=== PATIENT | male | born 1940 | race Caucasian/White ===

== ENCOUNTER → 2017-03-25 | Outpatient (CLI) | payer MEDICARE, OTHER ==
[~2017-03-25] MED LIST: ALLOPURINOL300 MG PO; AMOXICILLIN 50500 MG PO; AMOXICILLIN875 MG PO; ASPIR-LOW81 MG PO; ASPIRIN E.C. 8181 MG PO; BENICAR HCT 12.1 TA1 PO; CARDURA8 MG PO; CIPRO 500MG TA500 MG PO; CLARINEX 5MG5 MG PO; COREG12.5 MG PO; COREG6.25 MG PO; DOXAZOCIN; FLONASE NASAL S16 GM NS; FLUVOXAMINE MALEATE; LIPITOR 10MG10 MG PO; LUVOX100 MG PO; MAREPA1200 MG PO; NASONEX SPRAY; NASONEX SPRAY17 GM NS; NORCO 325 MG-51 TAB PO; ZYLOPRIM 300MG300 MG PO
== END ==
LOC: SUN.DIA 10:20
DX: E11.9 Type 2 diabetes mellitus without complications (principal); Z71.3 Dietary counseling and surveillance; Z87.891 Personal history of nicotine dependence
CPT/HCPCS: G0109

== ENCOUNTER → 2017-03-31 | Outpatient (CLI) | payer MEDICARE, OTHER | LOC: SUN.DIA 09:54 | DX: E11.9 Type 2 diabetes mellitus without complications (principal); E78.5 Hyperlipidemia, unspecified; I10 Essential (primary) hypertension; E66.9 Obesity, unspecified; Z68.41 Body mass index [BMI] 40.0-44.9, adult; Z71.3 Dietary counseling and surveillance; Z87.891 Personal history of nicotine dependence | CPT/HCPCS: G0108 ==

== ENCOUNTER → 2017-04-01 | Outpatient (CLI) | payer MEDICARE, OTHER | LOC: SUN.DIA 15:40 | DX: E11.9 Type 2 diabetes mellitus without complications (principal); E78.5 Hyperlipidemia, unspecified; I10 Essential (primary) hypertension; E66.9 Obesity, unspecified; Z71.3 Dietary counseling and surveillance; Z87.891 Personal history of nicotine dependence | CPT/HCPCS: G0109 ==

== ENCOUNTER → 2017-04-08 | Outpatient (CLI) | payer MEDICARE, OTHER | LOC: SUN.DIA 09:20 | DX: E11.9 Type 2 diabetes mellitus without complications (principal); E78.5 Hyperlipidemia, unspecified; I10 Essential (primary) hypertension; E66.9 Obesity, unspecified; Z71.3 Dietary counseling and surveillance; Z87.891 Personal history of nicotine dependence | CPT/HCPCS: G0109 ==

== ENCOUNTER → 2017-04-14 | Outpatient (CLI) | payer MEDICARE, OTHER | LOC: SUN.DIA 14:26 | DX: E11.9 Type 2 diabetes mellitus without complications (principal); E78.5 Hyperlipidemia, unspecified; I10 Essential (primary) hypertension; E66.9 Obesity, unspecified; Z68.41 Body mass index [BMI] 40.0-44.9, adult; Z71.3 Dietary counseling and surveillance; Z87.891 Personal history of nicotine dependence ==

== ENCOUNTER → 2017-04-15 | Outpatient (CLI) | payer MEDICARE, OTHER | LOC: SUN.DIA 08:38 | DX: E11.9 Type 2 diabetes mellitus without complications (principal); E78.5 Hyperlipidemia, unspecified; I10 Essential (primary) hypertension; E66.9 Obesity, unspecified; Z71.3 Dietary counseling and surveillance; Z87.891 Personal history of nicotine dependence | CPT/HCPCS: G0109 ==

== ENCOUNTER → 2017-07-15 | Outpatient (CLI) | payer MEDICARE, OTHER ==
[~2017-07-15] MED LIST changes: +CENTANY AT2% TP; +CEPHALEXIN500 M1 PO; +COREG 25MG25 MG/TAB PO; +GLUCOPHAGE1000 MG PO; +LEVOXYL0.05 MG PO
== END ==
LOC: SUN.DIA 14:36
DX: E11.9 Type 2 diabetes mellitus without complications (principal); E78.5 Hyperlipidemia, unspecified; I10 Essential (primary) hypertension; E66.9 Obesity, unspecified; Z68.41 Body mass index [BMI] 40.0-44.9, adult; Z71.3 Dietary counseling and surveillance; Z87.891 Personal history of nicotine dependence

== ENCOUNTER 2017-07-22 09:22 | Day surgery (SDC) | payer MEDICARE, OTHER ==
[2008-05-11 06:16] VITALS: BP 154/89
[2017-07-22] VITALS (9 sets, daily range): BP systolic 85–188; BP diastolic 45–97; PULSE 61–82; TEMP 98.1–98.5
[~2017-07-22] VITALS: Ht 170.4 cm; Wt 122.4 kg
[~2017-07-22 09:22] MED LIST changes: -CENTANY AT2% TP; -CEPHALEXIN500 M1 PO; -COREG 25MG25 MG/TAB PO; -GLUCOPHAGE1000 MG PO; -LEVOXYL0.05 MG PO
[2017-07-22 09:59] LABS: HEMATOCRIT 36.2 % (42.0-52.0); HEMOGLOBIN 12.1 g/dl (13.5-18.0); MEAN CELL VOLUME 91 fl (80.0-100.0); MEAN CORPUSCULAR HEMOGLOBIN 30 pg (27.0-31.0); MEAN CORPUSCULAR HGB CONC 33 g/dl (33.0-37.0); MEAN PLATELET VOLUME 9.8 fl (7.4-10.4); PLATELET COUNT 190 K/mm3 (130-400); RED BLOOD COUNT 3.99 M/mm3 (4.20-5.60); REDCELL DISTRIBUTION WIDTH-CV 13.9 % (11.5-14.5)
[2017-07-22 10:02] LABS: INR 1.2 (0.8-3.0); PROTHROMBIN TIME 13.7 SECONDS (9.7-12.8)
[2017-07-22 10:07] LABS: CALCIUM 9.7 mg/dL (8.4-10.2); CREATININE, serum 1.21 mg/dL (0.66-1.25)
[2017-07-22] MEDS ORDERED: BENICAR HCT 12.1 TA1 PO (10:12)
[2017-07-22] MEDS ORDERED: LEVOXYL0.05 MG PO (10:13)
[2017-07-22] MEDS ORDERED: CENTANY AT2% TP (10:15)
[2017-07-22] MEDS ORDERED: GLUCOPHAGE1000 MG PO (10:15)
[2017-07-23 01:39] VITALS: BP 169/68; PULSE 63
[2017-07-23 04:44] VITALS: BP 174/74; PULSE 58; TEMP 97.8
[2017-07-23 09:51] VITALS: BP 153/68; PULSE 63; TEMP 98.4
[2017-07-23 10:52] LABS: HEMATOCRIT 37.7 % (42.0-52.0); HEMOGLOBIN 12.5 g/dl (13.5-18.0); MEAN CELL VOLUME 91 fl (80.0-100.0); MEAN CORPUSCULAR HEMOGLOBIN 30 pg (27.0-31.0); MEAN CORPUSCULAR HGB CONC 33 g/dl (33.0-37.0); MEAN PLATELET VOLUME 9.8 fl (7.4-10.4); PLATELET COUNT 201 K/mm3 (130-400); RED BLOOD COUNT 4.13 M/mm3 (4.20-5.60); REDCELL DISTRIBUTION WIDTH-CV 14.1 % (11.5-14.5)
[2017-07-23 11:02] LABS: CALCIUM 9.4 mg/dL (8.4-10.2); CREATININE, serum 1.16 mg/dL (0.66-1.25); POTASSIUM 3.8 mmol/L (3.4-5.0)
[2017-07-23 12:27] VITALS: BP 149/62; PULSE 60; TEMP 98.1
[2017-07-23] MEDS ORDERED: CEPHALEXIN500 M1 PO (12:38)
[2017-07-23] MEDS ORDERED: COREG 25MG25 MG/TAB PO (12:39)
== END 2017-07-23 14:06 | disposition home or self-care (01) ==
LOC: COL.CAR 09:22 → MEDICAL 13:07 → COL.CAR 07-23 14:06
PROVIDERS: Internal Medicine Cardiovascular Disease
DX: I44.1 Atrioventricular block, second degree (principal); I10 Essential (primary) hypertension; E11.9 Type 2 diabetes mellitus without complications; G47.33 Obstructive sleep apnea (adult) (pediatric); E78.00 Pure hypercholesterolemia, unspecified; E03.9 Hypothyroidism, unspecified; Z79.82 Long term (current) use of aspirin; Z79.51 Long term (current) use of inhaled steroids; Z79.84 Long term (current) use of oral hypoglycemic drugs; Z85.46 Personal history of malignant neoplasm of prostate; Z80.42 Family history of malignant neoplasm of prostate; Z80.3 Family history of malignant neoplasm of breast; Z83.3 Family history of diabetes mellitus; Z82.49 Family history of ischemic heart disease and other diseases of the circulatory system
CPT/HCPCS: OP; C1894; C1898; J0690; J2250; J3010; J7030

== ENCOUNTER → 2017-11-17 | Outpatient (CLI) | payer MEDICARE, OTHER ==
[~2017-11-17] MED LIST changes: +CENTANY AT2% TP; +CEPHALEXIN500 M1 PO; +COREG 25MG25 MG/TAB PO; +GLUCOPHAGE1000 MG PO; +LEVOXYL0.05 MG PO
== END ==
LOC: SUN.DIA 13:59
DX: Z01.89 Encounter for other specified special examinations (principal)

== ENCOUNTER → 2017-11-24 | Outpatient (CLI) | payer MEDICARE, OTHER | LOC: SUN.DIA 10:54 | DX: E11.9 Type 2 diabetes mellitus without complications (principal); E78.5 Hyperlipidemia, unspecified; I10 Essential (primary) hypertension; E66.9 Obesity, unspecified; Z71.3 Dietary counseling and surveillance; Z87.891 Personal history of nicotine dependence ==

== ENCOUNTER → 2018-03-18 | Outpatient (CLI) | payer MEDICARE, OTHER | LOC: SUN.DIA 11:00 | DX: E11.9 Type 2 diabetes mellitus without complications (principal); E78.5 Hyperlipidemia, unspecified; I10 Essential (primary) hypertension; E66.9 Obesity, unspecified ==

== ENCOUNTER → 2018-07-20 | Outpatient (CLI) | payer MEDICARE, OTHER | LOC: SUN.DIA 10:59 | DX: E11.9 Type 2 diabetes mellitus without complications (principal); E78.5 Hyperlipidemia, unspecified; I10 Essential (primary) hypertension; E66.9 Obesity, unspecified ==

== ENCOUNTER → 2018-10-20 | Outpatient (CLI) | payer MEDICARE, OTHER | LOC: SUN.DIA 11:00 | DX: E11.9 Type 2 diabetes mellitus without complications (principal); E78.5 Hyperlipidemia, unspecified; I10 Essential (primary) hypertension; E66.9 Obesity, unspecified | CPT/HCPCS: G0108 ==

== ENCOUNTER → 2020-01-23 | Outpatient (CLI) | payer MEDICARE, OTHER | LOC: DIA.ED 10:35 | DX: E11.9 Type 2 diabetes mellitus without complications (principal); Z79.84 Long term (current) use of oral hypoglycemic drugs; E66.8 Other obesity; E78.5 Hyperlipidemia, unspecified; I10 Essential (primary) hypertension | CPT/HCPCS: G0270 ==

== ENCOUNTER → 2020-07-16 | Outpatient (CLI) | payer MEDICARE, OTHER | LOC: DIA.ED 06-14 10:09 | DX: E11.9 Type 2 diabetes mellitus without complications (principal); Z79.84 Long term (current) use of oral hypoglycemic drugs; E78.5 Hyperlipidemia, unspecified; I10 Essential (primary) hypertension; E66.8 Other obesity | CPT/HCPCS: G0270 ==

== ENCOUNTER 2020-12-28 10:41 | Day surgery (SDC) | payer MEDICARE, OTHER ==
[2008-05-11 06:16] VITALS: BP 154/89
[~2020-12-28] VITALS: Ht 170.2 cm; Wt 130.0 kg
[2020-12-28] VITALS (9 sets, daily range): BP systolic 102–156; BP diastolic 39–80; PULSE 60–72; TEMP 98.2
[2020-12-28] MEDS ORDERED: NEURONTIN300 MG/CAP PO (11:06)
[2020-12-28] MEDS ORDERED: ASPIRIN E.C. 8181 MG PO (11:06)
[2020-12-28] MEDS ORDERED: TRULICITY0.75 MG/0. SQ (11:06)
[2020-12-28] MEDS ORDERED: ALDACTONE 25MG25 M1 PO (11:07)
[2020-12-28] MEDS ORDERED: BENICAR40 MG PO (11:07)
[2020-12-28] MEDS ORDERED: COREG 25MG25 MG/TAB PO (11:07)
[2020-12-28] MEDS ORDERED: CLARINEX 5MG5 MG PO (11:07)
[2020-12-28] MEDS ORDERED: JANUVIA 100MG100 MG PO (11:08)
[2020-12-28] MEDS ORDERED: LEVOXYL0.05 MG PO (11:08)
[2020-12-28] MEDS ORDERED: GLUCOPHAGE1000 MG PO (11:08)
[2020-12-28] MEDS ORDERED: NORVASC 10MG10 MG PO (11:09)
[2020-12-28] MEDS ORDERED: ZYLOPRIM 300MG300 MG PO (11:10)
[2020-12-28] MEDS ORDERED: CARDURA 8MG TAB8 MG PO (11:10)
[2020-12-28] MEDS ORDERED: FLONASEALLERGY NS (11:11)
[2020-12-28] MEDS ORDERED: LUVOX100 MG PO (11:11)
[2020-12-28] MEDS ORDERED: EPA FISH OIL1 SGL PO (11:12)
[2020-12-28] MEDS ORDERED: LIPITOR 10MG10 MG PO (11:12)
[2020-12-28] MEDS ORDERED: CENTRUM SILVER1 TAB PO (11:12)
[2020-12-28 11:19] LABS: HEMATOCRIT 33.6 % (42.0-52.0); HEMOGLOBIN 11.5 g/dl (13.5-18.0); MEAN CELL VOLUME 93 fl (80.0-100.0); MEAN CORPUSCULAR HEMOGLOBIN 32 pg (27.0-31.0); MEAN CORPUSCULAR HGB CONC 34 g/dl (33.0-37.0); MEAN PLATELET VOLUME 9.9 fl (7.4-10.4); PLATELET COUNT 184 K/mm3 (130-400); RED BLOOD COUNT 3.61 M/mm3 (4.20-5.60)
[2020-12-28 11:26] LABS: INR 1.1 (0.8-3.0); PROTHROMBIN TIME 11.7 SECONDS (9.7-12.8)
[2020-12-28 11:28] LABS: PARTIAL THROMBOPLASTIN TIME 29.8 SECONDS (26.0-37.0)
[2020-12-28 11:29] LABS: CALCIUM 9.7 mg/dL (8.4-10.2); CREATININE, serum 1.43 (0.66-1.25)
--- NOTE | 2020-12-28 13:01 | NUR ---
SEE MERGE FOR ALL MEDICATION ADMINISTRATION TIMES INTRA AND POST SEDATION ASSESSMENTS
--- NOTE | 2020-12-28 14:00 | NUR ---
Pt back from laboratory scientist, report from Yanna PAYTON. Pt is awake and alert, no complaints, TR band to rt wrist cms intact. poc reviewed, lunch ordered, pt on telemetry. at bs, call light in reach.
--- NOTE | 2020-12-28 17:20 | NUR ---
Pt to exit at this time. TR band was deflated with no problem. There was some oozing initially at 1615 when 3 cc air was removed from band, but air was returned to band for 20 minutes, and after that time there was no evidence of bleeding as band was deflated. I have reviewed dc, rx and fu instructions with pt who verbalized understanding. iv dc'd with cath intact, dressing applied. pt is amb with steady gait. to exit via wheelchair.
== END 2020-12-28 17:20 | disposition home or self-care (01) ==
LOC: COL.CAR 10:41
PROVIDERS: Internal Medicine Cardiovascular Disease
DX: I42.0 Dilated cardiomyopathy (principal); I10 Essential (primary) hypertension; E78.00 Pure hypercholesterolemia, unspecified; G47.33 Obstructive sleep apnea (adult) (pediatric); Z20.822 Contact with and (suspected) exposure to COVID-19; Z99.89 Dependence on other enabling machines and devices
CPT/HCPCS: C1769; J1644; J2250; J3010

== ENCOUNTER 2021-01-08 06:16 | Day surgery (SDC) | payer MEDICARE, OTHER ==
[2008-05-11 06:16] VITALS: BP 154/89
[~2021-01-08] VITALS: Ht 170.2 cm; Wt 132.3 kg
[~2021-01-08 06:16] MED LIST changes: +ALDACTONE 25MG25 M1 PO; +BENICAR40 MG PO; +CARDURA 8MG TAB8 MG PO; +CENTRUM SILVER1 TAB PO; +EPA FISH OIL1 SGL PO; +FLONASEALLERGY NS; +JANUVIA 100MG100 MG PO; +NEURONTIN300 MG/CAP PO; +NORVASC 10MG10 MG PO; +TRULICITY0.75 MG/0. SQ
[2021-01-08 07:54] LABS: HEMOGLOBIN 10.7 g/dl (13.5-18.0); MEAN CELL VOLUME 96 fl (80.0-100.0); MEAN CORPUSCULAR HEMOGLOBIN 32 pg (27.0-31.0); MEAN CORPUSCULAR HGB CONC 34 g/dl (33.0-37.0); MEAN PLATELET VOLUME 10.4 fl (7.4-10.4); PLATELET COUNT 167 K/mm3 (130-400); RED BLOOD COUNT 3.31 M/mm3 (4.20-5.60); REDCELL DISTRIBUTION WIDTH-CV 14.3 % (11.5-14.5)
[2021-01-08 07:55] LABS: HEMATOCRIT 31.8 % (42.0-52.0)
[2021-01-08 08:01] LABS: INR 1.1 (0.8-3.0); PROTHROMBIN TIME 11.9 SECONDS (9.7-12.8)
[2021-01-08 08:02] LABS: CREATININE, serum 1.7 (0.66-1.25); POTASSIUM 5.1 mmol/L (3.4-5.0)
[2021-01-08 08:28] VITALS: BP 106/54; PULSE 70; TEMP 97.4
--- NOTE | 2021-01-08 08:32 | NUR ---
Pt to procedure,report to Rene Sanford.
[2021-01-08 11:45] VITALS: BP 113/38; PULSE 67; TEMP 98
--- NOTE | 2021-01-08 12:00 | NUR ---
Patient arrived to room 318 from biology laboratory assistant s/p pacemaker placement at this time, her is alert/oriented, vital signs stable, denies pain or discomfort, left arm in immobilizer and stressed the importance of not using his left arm, present at bedside, i will apply ICE to incision site, we will assist him with his diet, gave him a urinal as well as he was given IV lasix before coming up
[2021-01-08 12:15] VITALS: BP 115/42; PULSE 65
[2021-01-08 13:22] VITALS: BP 97/39; PULSE 62; TEMP 97.2
[2021-01-08 15:46] VITALS: BP 101/48; PULSE 62; TEMP 97.6
[2021-01-08 20:30] VITALS: BP 100/48; PULSE 66; TEMP 97.5
--- NOTE | 2021-01-09 03:23 | NUR ---
Assessment completed, alert and oriented. Denies pain in insicion site Cold compress provided. Patient slept all night without any issues noted. Call light is within reach. Continue to monitor.
[2021-01-09 04:17] VITALS: BP 114/54; PULSE 74; TEMP 98
[2021-01-09 07:09] LABS: BASO % 0.4 % (0.0-2.0); EOS # 0.2 (0.0-0.7); EOS % 3.3 % (0-4.0); GRAN # 5.2 (1.4-6.5); GRAN % 75.2 % (42.2-75.2); HEMOGLOBIN 10.7 g/dl (13.5-18.0); LYMPH # 0.9 (1.2-3.4); LYMPH % 12.6 % (20.0-51.0); MEAN CELL VOLUME 97 fl (80.0-100.0); MEAN CORPUSCULAR HEMOGLOBIN 32 pg (27.0-31.0); MEAN CORPUSCULAR HGB CONC 33 g/dl (33.0-37.0); MEAN PLATELET VOLUME 10.5 fl (7.4-10.4); MONO # 0.6 (0.1-0.6); MONO % 8.2 % (1.7-9.3); PLATELET COUNT 170 K/mm3 (130-400); RED BLOOD COUNT 3.33 M/mm3 (4.20-5.60); REDCELL DISTRIBUTION WIDTH-CV 14.1 % (11.5-14.5)
[2021-01-09 07:16] LABS: CALCIUM 9.1 mg/dL (8.4-10.2); CREATININE, serum 1.57 (0.66-1.25); POTASSIUM 5.1 mmol/L (3.4-5.0)
[2021-01-09 07:19] LABS: HEMATOCRIT 32.3 % (42.0-52.0)
[2021-01-09 08:14] VITALS: BP 115/48; PULSE 70; TEMP 98.6
--- NOTE | 2021-01-09 09:53 | NUR ---
SW met with the patient to discuss discharge plan. The patient lives in [place] with his , Audra (ph#[phone]). He reports independence with ADLs and has a cane. The patient's PCP is Dr. Dmitri Benoit and he receives his medications from [facility]. He reports no difficulties obtaining his meds. The patient does not have a DPOA-HC in EMR, but he states that he believes he has one completed and that he designated his . The patient plans to return home with upon discharge. No additional needs at this time. *Discharge plan: home with *
[2021-01-09] MEDS ORDERED: CEPHALEXIN500 M1 PO (10:01)
--- NOTE | 2021-01-09 10:20 | NUR ---
Assessment conpleted, alert/oriented, vital signs stable, denies pain or discomfort, heart RRR/ paced on tele, incision site to left chest looks good and dressing C/D/I, stressed importance of wearing arm sling/immobilizer,lungs CTA/ no resp.difficulty, present, plans to discharge pending CXR/EKG and device interrogation
--- NOTE | 2021-01-09 12:34 | NUR ---
Initial visit; Patient thanked Dairy Equipment Specialist for looking in on him and offering God's blessings.
--- NOTE | 2021-01-09 13:15 | NUR ---
Discharge instructions discussed with the patient, instructed to follow up with Cardiology as scheduled for him, instructed to finish course of abx/ script for Keflex sent to [facility] pharmacy for him, IV and tele removed, instructed to keep arm sling/immobilizer on especially at night, discussed bathing and activity restrictions, leaving with his and I escorted him out
== END 2021-01-09 13:31 | disposition home or self-care (01) ==
LOC: COL.CAR 06:16 → MEDICAL 11:55 → COL.CAR 01-09 13:31
PROVIDERS: Internal Medicine Cardiovascular Disease
DX: I44.1 Atrioventricular block, second degree (principal); I42.0 Dilated cardiomyopathy; I50.20 Unspecified systolic (congestive) heart failure; Z95.0 Presence of cardiac pacemaker
CPT/HCPCS: OP; C1769; C1894; C1900; C2621; J0690; J1940; J2250; J3010; J7030; J7040; Q9967

== ENCOUNTER 2022-09-23 15:06 | Inpatient (IN) | payer MEDICARE, OTHER ==
[2008-05-11 06:16] VITALS: BP 154/89
[~2022-09-23] VITALS: Ht 170.2 cm; Wt 130.6 kg
[2022-09-23 15:47] LABS: BASO % 0.3 % (0.0-2.0); EOS # 0.2 K/mm3 (0.0-0.7); EOS % 2.6 % (0.0-4.0); GRAN # 5.2 K/mm3 (1.4-6.5); GRAN % 67.9 % (42.2-75.2); HEMOGLOBIN 10.3 g/dl (13.5-18.0); LYMPH # 1.5 K/mm3 (1.2-3.4); LYMPH % 19.7 % (20.0-51.0); MEAN CELL VOLUME 98 fl (80.0-100.0); MEAN CORPUSCULAR HEMOGLOBIN 32 pg (27-31); MEAN CORPUSCULAR HGB CONC 33 g/dl (33.0-37.0); MEAN PLATELET VOLUME 10.5 fl (7.4-10.4); MONO # 0.7 K/mm3 (0.1-0.6); PLATELET COUNT 223 K/mm3 (130-400); RED BLOOD COUNT 3.21 M/mm3 (4.20-5.60); REDCELL DISTRIBUTION WIDTH-CV 14.9 % (11.5-14.5)
[2022-09-23 15:48] LABS: HEMATOCRIT 31.5 % (42.0-52.0)
[2022-09-23 16:08] LABS: ALBUMIN 3.6 gm/dL (3.4-4.8); BILIRUBIN,TOTAL 0.2 mg/dL (0.2-1.2); CALCIUM 9.6 mg/dL (8.4-10.2); CREATININE, serum 3.33 mg/dL (0.72-1.25); POTASSIUM 5.6 mmol/L (3.5-4.5); TOTAL PROTEIN 7.9 gm/dL (6.2-8.1)
[2022-09-23 16:14] LABS: TROPONIN-I 0.012 ng/mL (0.00-0.033)
[2022-09-23 16:54] LABS: INR 1.1 (0.8-3.0); PROTHROMBIN TIME 12.5 SECONDS (9.7-12.8)
[2022-09-23 16:58] LABS: PARTIAL THROMBOPLASTIN TIME 31.5 SECONDS (26.0-37.0)
[2022-09-23 18:16] VITALS: BP 127/61; PULSE 78; TEMP 97.5
--- NOTE | 2022-09-23 18:23 | NUR ---
PATIENT ARRIVED ON FLOOR AT 181 ACCOMPANIED BY PET HOUSE SITTER. PATIENT ASSISTED TO BED. VITAL SIGNS OBTAINED AND STABLE. 1 STANDBY ASSIST WITH TRANSFER. ON LR AT 150ML/HR, TOLERATING WELL. DENIES NEEDS AT THIS TIME, CALL LIGHT WITHIN REACH. ORIENTED TO ROOM.
--- NOTE | 2022-09-23 18:55 | NUR ---
REPORT GIVEN TO JT PAYTON. AWAITING HEP XA DRAW.
[2022-09-23 20:00] VITALS: BP 140/55; PULSE 70; TEMP 97.8
[2022-09-23 23:11] VITALS: BP 140/51; PULSE 74; TEMP 98.1
[2022-09-24] VITALS (7 sets, daily range): BP systolic 91–151; BP diastolic 31–70; PULSE 72–86; TEMP 97.6–98.4
--- NOTE | 2022-09-24 00:52 | NUR ---
09/24 2019 PLACED A 16 FR BEAN CATHETER IN PT. PER ORDER, IN ORDER TO OBTAIN ACCURATE I&O'S PER PROVIDER, PT. HAD CLEAR YELLOW URINE IN CATHETER, OBTAINED A SAMPLE AND GOT IT SENT DOWN TO THE LAB, PT. TOLRATED THE PROCEDURE WITH SOME DISCOMFORT, I DID HAVE TO STOP INFLATING THE BALLON AND ADVANCE IT FURTHER WHEN I FIRST TRIED HE EXHIBITED MORE DISCOMFORT WHEN I TRIED TO INFLATE THE BALLOON, PT. WAS OK THE SECOND TIME I TRIED INFLATING THE BALLOON. 2027-STARTED PT.'S HEPARIN DRIP WITH THE ASSISTANCE OF TATA WHALEN, AND PT. GOT A BOLUS DOSE OF 10,000 UNITS AT THIS TIME WELL. EXPLAINED TO PATIENT THAT WE WILL BE DRAWING HIS ANTI XA LEVEL EVERY 6 HOURS FOR NOW, AND THAT WE ARE LOOKING FOR IT TO BE WITHIN A CERTAIN NUMBER RANGE WHICH IS CONSIDERED THERAPEUTIC, ONCE IT HAS BEEN THERAPEUTIC TWICE IN A ROW WE WILL ONLY DRAW A LEVEL EVERY 12 HOURS, PT. STATED UNDERSTANDING.
[2022-09-24 00:58] LABS: CALCIUM 9.1 mg/dL (8.4-10.2); CREATININE, serum 2.91 mg/dL (0.72-1.25); POTASSIUM 5.4 mmol/L (3.5-4.5)
[2022-09-24 04:49] LABS: BASO % 0.1 % (0.0-2.0); EOS # 0.2 K/mm3 (0.0-0.7); EOS % 2.2 % (0.0-4.0); GRAN # 6.4 K/mm3 (1.4-6.5); LYMPH # 1.7 K/mm3 (1.2-3.4); LYMPH % 18.5 % (20.0-51.0); MEAN CORPUSCULAR HGB CONC 35 g/dl (33.0-37.0); MONO # 0.7 K/mm3 (0.1-0.6); MONO % 7.9 % (1.7-9.3); PLATELET COUNT 189 K/mm3 (130-400); RED BLOOD COUNT 2.61 M/mm3 (4.20-5.60); REDCELL DISTRIBUTION WIDTH-CV 14.7 % (11.5-14.5)
[2022-09-24 04:50] LABS: HEMATOCRIT 24.3 % (42.0-52.0); HEMOGLOBIN 8.4 g/dl (13.5-18.0); MEAN CELL VOLUME 93 fl (80.0-100.0); MEAN CORPUSCULAR HEMOGLOBIN 32 pg (27-31)
[2022-09-24 05:19] LABS: C-REACTIVE PROTEIN 1.45 mg/dL (0.00-0.50); CALCIUM 8.7 mg/dL (8.4-10.2); CREATININE, serum 2.54 mg/dL (0.72-1.25); MAGNESIUM 1.3 mg/dL (1.6-2.6); POTASSIUM 5.3 mmol/L (3.5-4.5)
[2022-09-24 05:29] LABS: PARTIAL THROMBOPLASTIN TIME 180.3 SECONDS (26.0-37.0)
[2022-09-24 08:15] LABS: PARTIAL THROMBOPLASTIN TIME 50.8 SECONDS (26.0-37.0)
[2022-09-24 09:30] LABS: COLLECTION METHOD CATHETER
[2022-09-24 09:34] LABS: MUCOUS Present (NOT PRESENT); SQUAMOUS EPITHELIAL None Seen /hpf (0-10); URINE BACTERIA None Seen /hpf (NONE SEEN); URINE RBC 0-2 /hpf (0-2)
[2022-09-24 09:41] LABS: URINE APPEARANCE Clear (CLEAR/HAZY); URINE COLOR Yellow (YELLOW); URINE GLUCOSE Negative (NEGATIVE); URINE KETONE Negative (NEGATIVE); URINE PROTEIN(semi-quant) Negative (NEGATIVE)
[2022-09-24 09:42] LABS: URINE BLOOD Negative (NEGATIVE); URINE NITRATE Negative (NEGATIVE); URINE UROBILINOGEN 0.2 E.U/dL (0.2-1.0)
--- NOTE | 2022-09-24 10:00 | NUR ---
Initial visit; Patient thanked Hospice Registered Nurse for looking in on him and offering prayer and God's blessings. Patient is a retired [employer] and very helpful to share his health issues and tests he will be going through to determine his diagnosis for care. Hospice Registered Nurse will keep him in her prayers,
--- NOTE | 2022-09-24 10:20 | NUR ---
SW met with pt for intake. Pt reports living in [place], [place] at [facility] with Audra. Pt confirmed Audra's phone number as [phone]. Pt reports using a cane and reports using elevators and not stairs. Pt denies oxygen. Pt reports PCP as Dr. Benoit. Pt reports the pharmacy as [facility] and has no issues. Pt reports having a DPOA and will request spouse to bring up if needed. Pt denies any other issues. Discharge Plan Home to [facility] with spouse
--- NOTE | 2022-09-24 10:27 | NUR ---
SHIFT ASSESSMENT COMPLETED AND MORNING MEDICATIONS ADMINISTERED PER ORDER. PATIENT IS ALERT AND ORIENTED X4. DENIES PAIN. LUNGS CTA. ON LR, TOLERATING WELL. ON HEPARIN DRIP. DENIES NEEDS. CALL LIGHT WITHIN REACH.
--- NOTE | 2022-09-24 11:47 | NUR ---
PER TECH, PATIENT'S BP LOW. PATIENT ASYMPTOMATIC. MANUAL BP: 120/70.
--- NOTE | 2022-09-24 14:20 | NUR ---
Telehealth visit conducted with Dr. Porter Scott, Financial Planning Adviser . Patient consented to visit. MK Coley present. Telecommunication initiated without any difficulties during exam. All questions were answered by Dr. Scott
--- NOTE | 2022-09-24 16:44 | NUR ---
CATHETER REMOVED PER ORDER. HEPARIN ON HOLD FOR ONE HOUR R/T HEP XA.
--- NOTE | 2022-09-24 18:00 | NUR ---
HEPARIN RESTARTED. PATIENT DENIES NEEDS. CALL LIGHT WITHIN REACH.
[2022-09-25 03:58] VITALS: BP 121/52; PULSE 80; TEMP 97.8
[2022-09-25 08:00] VITALS: BP 154/52; PULSE 66; TEMP 98
[2022-09-25 08:09] LABS: MEAN CELL VOLUME 92 fl (80.0-100.0); MEAN CORPUSCULAR HGB CONC 36 g/dl (33.0-37.0); MEAN PLATELET VOLUME 9.9 fl (7.4-10.4); PLATELET COUNT 190 K/mm3 (130-400); RED BLOOD COUNT 2.95 M/mm3 (4.20-5.60); REDCELL DISTRIBUTION WIDTH-CV 14.7 % (11.5-14.5)
[2022-09-25 08:10] LABS: HEMATOCRIT 27.2 % (42.0-52.0); HEMOGLOBIN 9.7 g/dl (13.5-18.0); MEAN CORPUSCULAR HEMOGLOBIN 33 pg (27-31)
[2022-09-25 08:28] LABS: CREATININE, serum 1.97 mg/dL (0.72-1.25); MAGNESIUM 1.5 mg/dL (1.6-2.6); POTASSIUM 4.9 mmol/L (3.5-4.5)
--- NOTE | 2022-09-25 08:45 | NUR ---
Pt IN [employer] THIS AM. SHIFT ASSESSMENT PERFORMED, SEE DOCUMENTATION. HEPARIN RUNNING INTO LFA IV AT 1550 UNITS/HOUR AT 0800. TITRATED DOWN TO 1400 UNITS/HOUR AT 0830, PER PROTOCOLS, WITH GUIDANCE OF RN PRATIMA. BED IN LOW POSITION, CALL LIGHT WITHIN REACH. NO FURTHER REQUESTS AT THIS TIME.
--- NOTE | 2022-09-25 09:39 | NUR ---
Follow-up; Patient sitting bedside and thanked Performance Improvement Coordinator for stopping and offering Blessings. Patient awaiting test results and Physician visit. Performance Improvement Coordinator continues to wish Jesus well.
[2022-09-25 11:18] VITALS: BP 156/67; PULSE 86; TEMP 97.6
--- NOTE | 2022-09-25 14:42 | NUR ---
Agree with student nurses assessment of the patient. Patient A&Ox4. VSS. IV CDI, fluids infusing. Denies pain and discomfort. Call light within reach
[2022-09-25 15:46] VITALS: BP 153/58; PULSE 79; TEMP 97.5
[2022-09-25 19:26] VITALS: BP 142/57; PULSE 70; TEMP 98
--- NOTE | 2022-09-25 20:15 | NUR ---
C/O headache-rating pain 11/15. Vitals WNL. Tramadol given per dr order. WIll monitor.
[2022-09-25 23:34] VITALS: BP 138/54; PULSE 72; TEMP 97.9
[2022-09-26 03:28] VITALS: BP 145/62; PULSE 69; TEMP 98.7
--- NOTE | 2022-09-26 04:43 | NUR ---
Patient has had an uneventful night and slept most of this shift. Heparin continues to run at 1400 units/hr to left forearm 22 guage without difficulty. Last HepXa therapuetic-next draw at 0500. Denied nausea/shortness of breath. C/O headache at beginning of shift and received tramadol with good pain control. VS remained stable. Discussed VQ scan this AM. Denies questions/concerns. Call light in reach. Will monitor.
[2022-09-26 05:47] LABS: BASO % 0.3 % (0.0-2.0); EOS # 0.2 K/mm3 (0.0-0.7); EOS % 3.2 % (0.0-4.0); GRAN # 4.2 K/mm3 (1.4-6.5); GRAN % 67.8 % (42.2-75.2); LYMPH # 1.2 K/mm3 (1.2-3.4); LYMPH % 20.1 % (20.0-51.0); MEAN CELL VOLUME 93 fl (80.0-100.0); MEAN CORPUSCULAR HGB CONC 35 g/dl (33.0-37.0); MEAN PLATELET VOLUME 9.6 fl (7.4-10.4); MONO # 0.5 K/mm3 (0.1-0.6); MONO % 7.8 % (1.7-9.3); PLATELET COUNT 177 K/mm3 (130-400); RED BLOOD COUNT 2.89 M/mm3 (4.20-5.60); REDCELL DISTRIBUTION WIDTH-CV 14.8 % (11.5-14.5)
[2022-09-26 05:49] LABS: HEMATOCRIT 26.8 % (42.0-52.0); HEMOGLOBIN 9.4 g/dl (13.5-18.0); MEAN CORPUSCULAR HEMOGLOBIN 33 pg (27-31)
[2022-09-26 06:00] LABS: CALCIUM 9.3 mg/dL (8.4-10.2); CREATININE, serum 1.67 mg/dL (0.72-1.25); POTASSIUM 4.8 mmol/L (3.5-4.5)
[2022-09-26] MEDS ORDERED: ZYLOPRIM 100MG100 MG PO (07:25)
[2022-09-26 08:00] VITALS: BP 129/58; PULSE 81; TEMP 97.9
--- NOTE | 2022-09-26 08:00 | NUR ---
Pt OFF FLOOR WITH RADIOLOGY FOR vq SCAN.
[2022-09-26] MEDS ORDERED: NEURONTIN300 MG/CAP PO (08:25)
[2022-09-26] MEDS ORDERED: BENICAR 20MG TA20 MG PO (08:29)
--- NOTE | 2022-09-26 10:01 | NUR ---
PT/OT recommend home. The clinical team is ready to discharge the patient today. JR met with the patient to review discharge plan. The patient confirms plan to return home with his at [facility]. He had no concerns for JR. JR presented and read the IM form outloud to him. The patient verbalized understanding and signed the form. He declined a copy. No additional needs at this time.
--- NOTE | 2022-09-26 12:41 | NUR ---
THIS RN REVIEWED DISCHARGE INSTRUCTIONS, AT BEDSIDE, ALL QUESTIONS ANSWERED. IV D/C. TELE D/C. PT ESCORTED OFF OF UNIT BY VIA [facility] STAFF.
== END 2022-09-26 12:43 | disposition home or self-care (01) | DRG 683 ==
LOC: COL.ER 15:06 → MEDICAL 16:50
PROVIDERS: Family Medicine; Physician Assistant; Student in an Organized Health Care Education/Training Program; ADMIT Internal Medicine
PROC: 5A09457 Assistance with Respiratory Ventilation, 24-96 Consecutive Hours, Continuous Positive Airway Pressure (ICD-10-PCS; principal; 2022-09-23)
DX: N17.9 Acute kidney failure, unspecified (principal); E87.20 Acidosis, unspecified; G72.81 Critical illness myopathy; I13.0 Hypertensive heart and chronic kidney disease with heart failure and stage 1 through stage 4 chronic kidney disease, or unspecified chronic kidney disease; I50.22 Chronic systolic (congestive) heart failure; Z68.42 Body mass index [BMI] 45.0-49.9, adult; N18.30 Chronic kidney disease, stage 3 unspecified; E87.5 Hyperkalemia; M10.9 Gout, unspecified; E66.9 Obesity, unspecified; E83.42 Hypomagnesemia; E11.22 Type 2 diabetes mellitus with diabetic chronic kidney disease; R51.9 Headache, unspecified; E86.9 Volume depletion, unspecified; E11.40 Type 2 diabetes mellitus with diabetic neuropathy, unspecified; G47.33 Obstructive sleep apnea (adult) (pediatric); I25.10 Atherosclerotic heart disease of native coronary artery without angina pectoris; Z95.0 Presence of cardiac pacemaker; Z86.16 Personal history of COVID-19; Z88.8 Allergy status to other drugs, medicaments and biological substances; Z90.79 Acquired absence of other genital organ(s); Z79.84 Long term (current) use of oral hypoglycemic drugs; Z79.82 Long term (current) use of aspirin; Z79.890 Hormone replacement therapy; Z87.442 Personal history of urinary calculi; Z23 Encounter for immunization
CPT/HCPCS: A9270; A9284; A9540; A9567; J1644; J1815; J3475; J7120